=== PATIENT | female | born 1950 | race Caucasian/White ===

== ENCOUNTER → 2016-09-28 | Outpatient (CLI) | payer MEDICARE, OTHER ==
[2016-09-28 16:29] LABS: CHLORIDE,CL 107 mmol/L (98-110); SODIUM,NA 141 mmol/L (136-146)
== END | disposition home or self-care (01) ==
LOC: MW.LAB 15:37
PROVIDERS: ATTEND Internal Medicine Infectious Disease
DX: I10 Essential (primary) hypertension (principal)
CPT/HCPCS: 36415; 80053; 85025; 87522

== ENCOUNTER → 2016-10-15 | Outpatient (CLI) | payer MEDICARE, OTHER | LOC: MW.LAB 14:31 | PROVIDERS: ATTEND Internal Medicine Infectious Disease | DX: B18.2 Chronic viral hepatitis C (principal) | CPT/HCPCS: 36415; 87522 ==

== ENCOUNTER 2017-09-01 16:32 | Emergency (ER) | payer MEDICARE, OTHER ==
[2017-09-01] MEDS ORDERED: Alum Hydrox/Mag Hydrox/Simeth 15 ML, Lidocaine 2% 5 ML PO ONE ×2 (17:49)
[2017-09-01 18:42] LABS: CHLORIDE,CL 109 mmol/L (98-110); SODIUM,NA 142 mmol/L (136-146)
--- NOTE | 2017-09-01 19:26 | EDM.PDOC ---
ED HPI GENERAL MEDICAL PROBLEM - General Chief Complaint: Abdominal Pain Stated Complaint: STOMACH PAIN Time Seen by Provider: 09/01/17 17:10 Source of Information: Reports: Patient History Limitations: Reports: No Limitations - History of Present Illness INITIAL COMMENTS - FREE TEXT/NARRATIVE: HISTORY AND PHYSICAL: History of present illness: [Comes to the emergency room complaining of abdominal discomfort. Symptoms started yesterday evening and have continued into today. She reports a squeezing sensation through her mid abdomen that begins at her esophagus and moves down into her lower abdomen. She feels that this stimulates peristalsis. She describes the pain as waxing and waning and is not constant. Eating a meal worsened her symptoms last evening but she has not experienced this today. She took some Pepto-Bismol and has been taking ibuprofen which she thinks improved her symptoms. Has been pushing fluids. No fever chills. Denies nausea or vomiting. No constipation or diarrhea. No change in her bowels or bladder. No blood in her stools or black tarry stools. No change in urinary habits. Denies swelling or discoloration to extremities. She has no other complaints or concerns at this time. History of dry eyes, and migraine headaches.] Review of systems: As per history of present illness and below otherwise all systems reviewed and negative. Past medical history: As per history of present illness and as reviewed below otherwise noncontributory. Surgical history: As per history of present illness and as reviewed below otherwise noncontributory. Social history: No reported history of drug or alcohol abuse. Family history: As per history of present illness and as reviewed below otherwise noncontributory. Physical exam: HEENT: Atraumatic, normocephalic. Oral mucous membranes are pink and moist. No tonsillar swelling erythema or exudate. Throat is clear. Neck supple no lymphadenopathy or thyromegaly. Lungs: Clear to auscultation, breath sounds equal bilaterally. Heart: S1S2, regular rate and rhythm. Abdomen: Bowel sounds are normoactive throughout. Her abdomen is soft and nondistended. She is mildly tender throughout her entire abdomen with palpation. No guarding masses or rebound. No CVA tenderness. No organomegaly. Genitourinary: Deferred. Rectal: Deferred. Extremities: Atraumatic, ambulance without difficulty. Neurovascular unremarkable. Neuro: Awake, alert, oriented. Motor and sensory unremarkable throughout. Exam nonfocal. Diagnostics: [CBC, CMP, UA, amylase, lipase] Therapeutics: [GI cocktail] Impression: [abdominal pain] Plan: [GI Cocktail resolved patient's heartburn symptoms entirely. Patient appears relieved to have normal lab results and agrees to follow-up with a local PCP for further investigation of her abdominal pain. She is in agreement with today' s plan. We reviewed strict return precautions. She is in agreement with today's plan. All questions are answered concerns are addressed.] Definitive disposition and diagnosis as appropriate pending reevaluation and review of above. 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: Musculoskeletal History: Reports: Arthritis Neurological History: Reports: Migraines - Infectious Disease History Infectious Disease History: Reports: Chicken Pox, Hepatitis C, Measles, Mumps - Past Surgical History Female Surgical History: Reports: Section Musculoskeletal Surgical History: Reports: Arthroscopic Knee Social & Family History - Family History Family Medical History: Noncontributory Oncologic: Reports: Breast, Colon - Tobacco Use Smoking Status *Q: Never Smoker Second Hand Smoke Exposure: No - Caffeine Use Caffeine Use: Reports: Coffee, Tea - Recreational Drug Use Recreational Drug Use: No ED ROS GENERAL - Review of Systems Review Of Systems: ROS reveals no pertinent complaints other than HPI. ED EXAM, GI/ABD - Physical Exam Exam: See Below Course - Vital Signs Last Recorded V/S: Last Vital Signs Temp 98.2 F 09/01/17 17:19 Pulse 74 09/01/17 17:19 Resp 18 09/01/17 17:19 BP 129/86 09/01/17 17:19 Pulse Ox 96 09/01/17 17:19 - Orders/Labs/Meds Labs: Laboratory Tests 09/01/17 09/01/17 09/01/17 Range/Units 18:11 18:11 19:05 WBC 9.22 (4.0-11.0) K/uL RBC 4.69 (4.30-5.90) M/uL Hgb 14.9 (12.0-16.0) g/dL Hct 42.7 (36.0-46.0) % MCV 91.0 (80.0-98.0) fL MCH 31.8 (27.0-32.0) pg MCHC 34.9 (31.0-37.0) g/dL RDW Std Deviation 42.1 (28.0-62.0) fl RDW Coeff of Naima 13 (11.0-15.0) % Plt Count 216 (150-400) K/uL MPV 9.60 (7.40-12.00) fL Neut % (Auto) 70.9 (48.0-80.0) % Lymph % (Auto) 21.0 (16.0-40.0) % [place] % (Auto) 6.4 (0.0-15.0) % Eos % (Auto) 1.4 (0.0-7.0) % Baso % (Auto) 0.3 (0.0-1.5) % Neut # (Auto) 6.5 H (1.4-5.7) K/uL Lymph # (Auto) 1.9 (0.6-2.4) K/uL [place] # (Auto) 0.6 (0.0-0.8) K/uL Eos # (Auto) 0.1 (0.0-0.7) K/uL Baso # (Auto) 0.0 (0.0-0.1) K/uL Nucleated RBC % 0.0 /100WBC Nucleated RBCs # 0 K/uL Sodium 142 (136-146) mmol/L Potassium 4.3 (3.5-5.1) mmol/L Chloride 109 (98-110) mmol/L Carbon Dioxide 25 (21-31) mmol/L BUN 16 (6.0-23.0) mg/dL Creatinine 0.9 (0.6-1.5) mg/dL Est Cr Clr Drug Dosing 55.33 mL/min Estimated GFR (MDRD) > 60.0 ml/min Glucose 108 (60-110) mg/dL Calcium 9.8 (8.8-10.8) mg/dL Total Bilirubin 0.4 (0.1-1.5) mg/dL AST 19 (5-40) IU/L ALT 14 (8-54) IU/L Alkaline Phosphatase 59 (40-150) Total Protein 7.8 (6.0-8.0) g/dL Albumin 4.3 (3.4-4.8) g/dL Globulin 3.5 (2.0-3.5) g/dL Albumin/Globulin Ratio 1.2 L (1.3-2.8) Amylase 72 (10-90) U/L Lipase 27 (7-80) U/L Urine Color YELLOW Urine Appearance CLEAR Urine pH 6.0 (5.0-8.0) Ur Specific [place] 1.025 (1.001-1.035) Urine Protein NEGATIVE (NEGATIVE) mg/dL Urine Glucose (UA) NEGATIVE (NEGATIVE) mg/dL Urine Ketones NEGATIVE (NEGATIVE) mg/dL Urine Occult Blood NEGATIVE (NEGATIVE) Urine Nitrite NEGATIVE (NEGATIVE) Urine Bilirubin NEGATIVE (NEGATIVE) Urine Urobilinogen 0.2 (<2.0) EU/dL Ur Leukocyte Esterase NEGATIVE (NEGATIVE) Urine RBC 0-1 (0-2/HPF) Urine WBC 0-2 (0-5/HPF) Ur Epithelial Cells RARE (NONE-FEW) Amorphous Sediment LIGHT (NEGATIVE) Urine Bacteria RARE (NEGATIVE) Urine Mucus LIGHT (NONE-MOD) Meds: Medications Discontinued Medications Generic Name Dose Route Start Last Admin Trade Name Freq PRN Reason Stop Dose Admin Al Hydroxide/Mg Hydroxide 15 0 ml 09/01/17 17:49 09/01/17 18:09 ml/ Lidocaine HCl 5 ml PO 09/01/17 17:50 1 each ONETIME ONE Administration Departure - Departure Time of Disposition: 19:25 Disposition: Home, Self-Care 01 Condition: Good Clinical Impression: Abdominal pain - Discharge Information Instructions: Abdominal Pain, Adult Referrals: PCP,None [Primary Care Provider] - Forms: ED Department Discharge Additional Instructions: The following information is given to patients seen in the emergency department who are being discharged to home. This information is to outline your options for follow-up care. We provide all patients seen in our emergency department with a follow-up referral. The need for follow-up, as well as the timing and circumstances, are variable depending upon the specifics of your emergency department visit. If you don't have a primary care physician on staff, we will provide you with a referral. We always advise you to contact your personal physician following an emergency department visit to inform them of the circumstance of the visit and for follow-up with them and/or the need for any referrals to a consulting specialist. The emergency department will also refer you to a specialist when appropriate. This referral assures that you have the opportunity for follow-up care with a specialist. All of these measure are taken in an effort to provide you with optimal care, which includes your follow-up. Under all circumstances we always encourage you to contact your private physician who remains a resource for coordinating your care. When calling for follow-up care, please make the office aware that this follow-up is from your recent emergency room visit. If for any reason you are refused follow-up, please contact the [facility] emergency department at and asked to speak to the emergency department charge nurse. [facility] [address] [place] [id number] Call the above list clinic and schedule an appointment to discuss abdominal pain. Continue to monitor symptoms. You may try an [id number] medication for acid such as Pepcid or Zantac. Return to ER as needed as discussed.
== END 2017-09-01 19:56 | disposition home or self-care (01) ==
LOC: MW.ED 16:32
DX: R10.9 Unspecified abdominal pain (principal); Z79.899 Other long term (current) drug therapy; Z88.2 Allergy status to sulfonamides
CPT/HCPCS: 36415; 80053; 81001; 82150; 83690; 85025; 99284; A9270

== ENCOUNTER 2019-11-20 11:52 | Emergency (ER) | payer MEDICARE, OTHER ==
[2019-11-20] MEDS ORDERED: Metoprolol Tartrate 25 MG Tab PO ONE (12:11)
[2019-11-20 12:46] LABS: BLOOD UREA NITROGEN,BUN 21 mg/dL (7.0-18.0); CARBON DIOXIDE,CO2 26.8 mmol/L (21.0-32.0); CHLORIDE,CL 103 mmol/L (98-107); GLUCOSE RANDOM 95 mg/dL (74-106); POTASSIUM,K 4.1 mmol/L (3.5-5.1); SODIUM,NA 138 mmol/L (136-145)
[2019-11-20] MEDS ORDERED: Lidocaine 2% Viscous Solution 15 ML Cup PO ONE (12:54)
--- NOTE | 2019-11-20 13:13 | EDM.PDOC ---
ED HPI GENERAL MEDICAL PROBLEM - General Chief Complaint: ENT Problem Stated Complaint: BLOODY NOSE Time Seen by Provider: 11/20/19 12:00 Source of Information: Reports: Patient History Limitations: Reports: No Limitations - History of Present Illness INITIAL COMMENTS - FREE TEXT/NARRATIVE: 69-year-old female presents the emergency room with epistaxis out the right nostril. Patient states it happened a couple hours or she could not get to stop bleeding. Has a history of hep C which is been treated and hypertension also has migraines Onset: Today Duration: Hour(s):, Getting Worse Severity: Moderate Improves with: Reports: None Associated Symptoms: Reports: No Other Symptoms - Related Data Allergies Allergy/AdvReac Type Severity Reaction Status Date / Time Sulfa (Sulfonamide Allergy Swelling Verified 11/20/19 12:01 Antibiotics) Home Meds: Home Meds Eletriptan [Relpax] 40 mg PO DAILY 09/01/17 [History] Propranolol [InnoPran XL 24 Hr] 120 mg PO DAILY 09/01/17 [History] ondansetron HCL [Zofran] 4 mg PO Q4HR #12 tablet 07/03/18 [Rx] Past Medical History HEENT History: Reports: None Cardiovascular History: Reports: Arrhythmia Respiratory History: Reports: None Gastrointestinal History: Reports: Hepatitis Genitourinary History: Reports: None 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: Musculoskeletal History: Reports: Arthritis, Neck Pain, Chronic, Other (See Below) Other Musculoskeletal History: Lumbar DDD Neurological History: Reports: Migraines Psychiatric History: Reports: None Endocrine/Metabolic History: Reports: None Hematologic History: Reports: None Immunologic History: Reports: None Oncologic (Cancer) History: Reports: Basal Cell Carcinoma Dermatologic History: Reports: None - Infectious Disease History Infectious Disease History: Reports: Chicken Pox, Hepatitis C Other Infectious Disease History: Now negative hep c - Past Surgical History Head Surgeries/Procedures: Reports: None HEENT Surgical History: Reports: None Respiratory Surgical History: Reports: None Female Surgical History: Reports: Section Endocrine Surgical History: Reports: None Musculoskeletal Surgical History: Reports: Arthroscopic Knee Dermatological Surgical History: Reports: None Social & Family History - Family History Family Medical History: Noncontributory Oncologic: Reports: Breast, Colon - Tobacco Use Smoking Status *Q: Never Smoker - Caffeine Use Caffeine Use: Reports: Coffee - Recreational Drug Use Recreational Drug Use: No ED ROS ENT - Review of Systems Review Of Systems: See Below Constitutional: Reports: No Symptoms HEENT: Reports: Nosebleed Respiratory: Reports: No Symptoms Cardiovascular: Reports: No Symptoms Endocrine: Reports: No Symptoms GI/Abdominal: Reports: No Symptoms : Reports: No Symptoms Musculoskeletal: Reports: No Symptoms Skin: Reports: No Symptoms Neurological: Reports: Headache Psychiatric: Reports: No Symptoms Hematologic/Lymphatic: Reports: No Symptoms Immunologic: Reports: No Symptoms ED EXAM, ENT - Physical Exam Exam: See Below Exam Limited By: No Limitations General Appearance: Alert, WD/WN, No Apparent Distress Eye Exam: Bilateral Eye: Normal Fundi, Normal Inspection Ears: Normal External Exam, Normal Canal, Hearing Grossly Normal, Normal TMs Nose: Normal Inspection, Active Bleeding (Amount of active bleeding. To see bleeding point in Kessenback's plexus) Mouth/Throat: Normal Inspection, Normal Gums Head: Atraumatic, Normocephalic Neck: Normal Inspection Respiratory/Chest: No Respiratory Distress, Lungs Clear, No Accessory Muscle Use Psychiatric: Normal Affect, Normal Mood Skin: Warm, Dry Lymphatic: No Adenopathy Course - Vital Signs Text/Narrative:: Patient came in with epistaxis. Had normal electrolytes and CBC performed. Patient blood pressure initially elevated at 172/100. Given some Lopressor blood pressure ranging now from 110/50 to 140/80. Patient has no symptoms and. Patient given lidocaine intranasally and then Rhino Rocket was placed. Patient's nosebleed cleared up patient will be discharged home Last Recorded V/S: Last Vital Signs Temp 96.5 F L 11/20/19 11:58 Pulse 67 11/20/19 12:49 Resp 16 11/20/19 12:49 BP 101/61 11/20/19 12:49 Pulse Ox 95 11/20/19 12:49 - Orders/Labs/Meds Labs: Laboratory Tests 11/20/19 11/20/19 Range/Units 12:15 12:15 WBC 6.49 (4.0-11.0) K/uL RBC 4.46 (4.30-5.90) M/uL Hgb 13.8 (12.0-16.0) g/dL Hct 40.7 (36.0-46.0) % MCV 91.3 (80.0-98.0) fL MCH 30.9 (27.0-32.0) pg MCHC 33.9 (31.0-37.0) g/dL RDW Std Deviation 42.2 (28.0-62.0) fl RDW Coeff of Naima 13 (11.0-15.0) % Plt Count 227 (150-400) K/uL MPV 9.70 (7.40-12.00) fL Neut % (Auto) 56.9 (48.0-80.0) % Lymph % (Auto) 32.7 (16.0-40.0) % [place] % (Auto) 8.6 (0.0-15.0) % Eos % (Auto) 1.5 (0.0-7.0) % Baso % (Auto) 0.3 (0.0-1.5) % Neut # (Auto) 3.7 (1.4-5.7) K/uL Lymph # (Auto) 2.1 (0.6-2.4) K/uL [place] # (Auto) 0.6 (0.0-0.8) K/uL Eos # (Auto) 0.1 (0.0-0.7) K/uL Baso # (Auto) 0.0 (0.0-0.1) K/uL Nucleated RBC % 0.0 /100WBC Nucleated RBCs # 0 K/uL Sodium 138 (136-145) mmol/L Potassium 4.1 (3.5-5.1) mmol/L Chloride 103 (98-107) mmol/L Carbon Dioxide 26.8 (21.0-32.0) mmol/L BUN 21 H (7.0-18.0) mg/dL Creatinine 0.9 (0.6-1.0) mg/dL Est Cr Clr Drug Dosing 53.83 mL/min Estimated GFR (MDRD) > 60.0 ml/min Glucose 95 (74-106) mg/dL Calcium 9.4 (8.5-10.1) mg/dL Total Bilirubin 0.6 (0.2-1.0) mg/dL AST 22 (15-37) IU/L ALT 21 (14-63) IU/L Alkaline Phosphatase 65 (46-116) U/L Total Protein 7.8 (6.4-8.2) g/dL Albumin 4.1 (3.4-5.0) g/dL Globulin 3.7 (2.6-4.0) g/dL Albumin/Globulin Ratio 1.1 (0.9-1.6) Meds: Medications Discontinued Medications Generic Name Dose Route Start Last Admin Trade Name Emy PRN Reason Stop Dose Admin Lidocaine HCl 15 ml 11/20/19 12:54 11/20/19 13:02 Xylocaine 2% Viscous PO 11/20/19 12:55 15 ml ONETIME ONE Administration Metoprolol Tartrate 25 mg 11/20/19 12:11 11/20/19 12:23 Lopressor PO 11/20/19 12:12 25 mg ONETIME ONE Administration Departure - Departure Time of Disposition: 13:12 Disposition: Home, Self-Care 01 Condition: Good Clinical Impression: Epistaxis - Discharge Information Instructions: Nosebleed, [id number], Nosebleed, Adult Referrals: PCP,None [Primary Care Provider] - Additional Instructions: Follow-up in 48 hours to the emergency room. Return for any problems i.e. increasing bleeding severe pain fever headaches. Sepsis Event Note - Evaluation Sepsis Screening Result: No Definite Risk - Focused Exam Vital Signs: Vital Signs Temp Pulse Pulse Resp BP BP Pulse Ox 11/20/19 12:49 67 16 101/61 95 11/20/19 12:40 70 137/70 96 11/20/19 12:24 74 18 151/91 H 97 11/20/19 12:23 75 151/91 H 11/20/19 12:17 75 17 158/89 H 96 11/20/19 11:58 96.5 F L 73 16 172/97 H 96 Date Exam was Performed: 11/20/19 Time Exam was Performed: 13:08
== END 2019-11-20 13:20 | disposition home or self-care (01) ==
LOC: MW.ED 11:52
DX: R04.0 Epistaxis (principal); G43.909 Migraine, unspecified, not intractable, without status migrainosus; M19.90 Unspecified osteoarthritis, unspecified site; Z88.2 Allergy status to sulfonamides; Z79.899 Other long term (current) drug therapy
CPT/HCPCS: 30903; 36415; 80053; 85025; 99283; A9270; 30901; 99282

== ENCOUNTER 2020-05-31 00:58 | Emergency (ER) | payer MEDICARE, OTHER ==
[2020-05-31] MEDS ORDERED: Sodium Chloride 0.9% 2.5 ML Syringe FLUSH PRN (02:01)
[2020-05-31] MEDS ORDERED: Sodium Chloride 0.9% 10 ML Syringe FLUSH PRN (02:01)
[2020-05-31] MEDS ORDERED: Ketorolac 15 MG/ML SDV IVPUSH ONE (02:01)
--- NOTE | 2020-05-31 02:18 | EDM.PDOC ---
ED HPI GENERAL MEDICAL PROBLEM - General Chief Complaint: Cardiovascular Problem Stated Complaint: HBP Time Seen by Provider: 05/31/20 02:03 - History of Present Illness INITIAL COMMENTS - FREE TEXT/NARRATIVE: HISTORY AND PHYSICAL: History of present illness: This is a 70-year-old female who presents ER today secondary to elevated blood pressure and headache. Patient reports that she does have a history significant for migraines in the past however headaches that she has been experiencing over the last 2-month are atypical to her typical migraines. Patient reports that she only takes propranolol for her migraines. Patient reports that she has been checking her blood pressure over the last 2 months and it has been elevated and is been corresponding with her headaches. Patient reports that she has not seen her doctor for this as of yet but does have an appointment next to be evaluated for her elevated blood pressure. Patient reports that her blood pressure earlier runs in the 130/70 range however over the last 2-month her blood pressure has been fluctuating and this evening her blood pressure was 170/105 with a headache so came to the ER for further evaluation. Patient denies any recent fevers, shakes, chills, nausea, vomiting, diarrhea, dysuria, frequency, urgency. Patient denies any blurred or double vision. Patient denies any weakness to her upper or lower extremities. Patient has any chest pain or shortness of breath or lower extremity edema or orthopnea/PND/dyspnea on exertion. Patient denies any urinary symptoms. Patient denies any history of hypertension, diabetes, liver, lung, kidney problems. Patient is allergic to sulfa Patient denies any tobacco alcohol or drugs. Review of systems: As per history of present illness and below otherwise all systems reviewed and negative. Past medical history: As per history of present illness and as reviewed below otherwise noncontributory. Surgical history: As per history of present illness and as reviewed below otherwise nonco ntributory. Social history: No reported history of drug or alcohol abuse. Family history: As per history of present illness and as reviewed below otherwise noncontributory. Physical exam: HEENT: Atraumatic, normocephalic, pupils reactive, negative for conjunctival pallor or scleral icterus, mucous membranes moist, throat clear, neck supple, nontender, trachea midline. Lungs: Clear to auscultation, breath sounds equal bilaterally, chest nontender. Heart: S1S2, regular, negative for clicks, rubs, or JVD. Abdomen: Soft, nondistended, nontender. Negative for masses or hepatosplenomegaly. Negative for costovertebral tenderness. Pelvis: Stable nontender. Genitourinary: Deferred. Rectal: Deferred. Extremities: Atraumatic, negative for cords or calf pain. Neurovascular unremarkable. Neuro: Awake, alert, oriented. Cranial nerves II through XII unremarkable. Cerebellum unremarkable. Motor and sensory unremarkable throughout. Exam nonfocal. Diagnostics: CBC, CMP, EKG, CT of the head. Therapeutics: Toradol 15 mg IV Assessment and plan: This is a 70-year-old female who presents ER today with a headache and hypertension. Patient will have labs drawn for medical clearance. Patient's b lood pressure is elevated here in the ED but does not exhibit necessity for immediate or emergent treatment. Patient given Toradol to treat the headache to see if that might help her hypertension. Patient will have a CT scan of her head since her headache in the last month is different than her typical migraines. CT head reveals no acute pathology. No bleed masses or tumors. EKG: As interpreted by ER physician: Suzette: Nonspecific ST-T wave abnormalities Normal axis No evidence of ST elevation AR Normal sinus rhythm heart rate of 60 CBC within normal limits. CMP reveals normal renal function. Patient given Toradol 15 mg IV in the ED with near resolution of her headache. Patient's blood pressure is 180/81. Patient reports that she feels much better. I have discussed with the patient the need to keep her appointment on for further evaluation of her elevated blood pressure. At this time I do feel that it would be in the patient's best interest to start her alter her me dications in the ED and patient be best served with evaluation by her primary care physician prior to initiation of antihypertensive medications. Reassessment at the time of disposition demonstrates that the patient is in no acute distress. The patient has remained stable throughout the entire ED visit and is without objective evidence for acute process requiring urgent intervention or hospitalization. The patient is stable for discharge, counseling is provided as documented above, discussed symptomatic treatment and specific conditions for return. I have spoken with the patient/caregiver and discussed todays findings, in addition to providing specific details for the plan of care. Questions are answered and there is agreement with the plan. Headache Pain Score (Numeric/FACES): 8 - Related Data Allergies Allergy/AdvReac Type Severity Reaction Status Date / Time Sulfa (Sulfonamide Allergy Swelling Verified 05/31/20 01:21 Antibiotics) Home Meds: Home Meds Propranolol [InnoPran XL 24 Hr] 120 mg PO DAILY 09/01/17 [History] SUMAtriptan [Imitrex] 50 mg PO ASDIRECTED PRN 05/31/20 [History] Past Medical History HEENT History: Reports: None Cardiovascular History: Reports: Arrhythmia Respiratory History: Reports: None Gastrointestinal History: Reports: Hepatitis Genitourinary History: Reports: None FOCUSER History: Reports: Musculoskeletal History: Reports: Arthritis, Neck Pain, Chronic, Other (See Below) Other Musculoskeletal History: Lumbar DDD Neurological History: Reports: Migraines Psychiatric History: Reports: None Endocrine/Metabolic History: Reports: None Hematologic History: Reports: None Immunologic History: Reports: None Oncologic (Cancer) History: Reports: Basal Cell Carcinoma Dermatologic History: Reports: None - Infectious Disease History Infectious Disease History: Reports: Hepatitis C Other Infectious Disease History: Now negative hep c - Past Surgical History Head Surgeries/Procedures: Reports: None HEENT Surgical History: Reports: None Respiratory Surgical History: Reports: None Female Surgical History: Reports: Section Endocrine Surgical History: Reports: None Musculoskeletal Surgical History: Reports: Arthroscopic Knee Dermatological Surgical History: Reports: None Social & Family History - Family History Family Medical History: Noncontributory Oncologic: Reports: Breast, Colon - Tobacco Use Tobacco Use Status *Q: Never Tobacco User Second Hand Smoke Exposure: No - Caffeine Use Caffeine Use: Reports: Coffee - Recreational Drug Use Recreational Drug Use: No ED ROS GENERAL - Review of Systems Review Of Systems: See Below ED EXAM, GENERAL - Physical Exam Exam: See Below #1 Interpretation EKG Interpretation Comments: EKG: As interpreted by ER physician: Suzette: Nonspecific ST-T wave abnormalities Normal axis No evidence of ST elevation AR Normal sinus rhythm heart rate of 60 Course - Vital Signs Last Recorded V/S: Last Vital Signs Temp 98.7 F 05/31/20 01:10 Pulse 58 L 05/31/20 02:48 Resp 14 05/31/20 02:48 BP 173/75 H 05/31/20 02:48 Pulse Ox 98 05/31/20 02:48 - Orders/Labs/Meds Orders: Active Orders 24 hr Category Date Time Status EKG Documentation Completion [RC] AM Care 05/31/20 02:01 Active Sodium Chloride 0.9% [Saline Flush] Med 05/31/20 02:01 Active 10 ml FLUSH ASDIRECTED PRN Sodium Chloride 0.9% [Saline Flush] Med 05/31/20 02:01 Active 2.5 ml FLUSH ASDIRECTED PRN Saline Lock Insert [OM.PC] Stat Oth 05/31/20 02:01 Ordered Medication Orders Sodium Chloride (Saline Flush) 10 ml FLUSH ASDIRECTED PRN PRN Reason: Keep Vein Open Sodium Chloride (Saline Flush) 2.5 ml FLUSH ASDIRECTED PRN PRN Reason: Keep Vein Open Labs: Laboratory Tests 05/31/20 05/31/20 Range/Units 02:15 02:15 WBC 6.71 (4.0-11.0) K/uL RBC 4.50 (4.30-5.90) M/uL Hgb 14.1 (12.0-16.0) g/dL Hct 40.9 (36.0-46.0) % MCV 90.9 (80.0-98.0) fL MCH 31.3 (27.0-32.0) pg MCHC 34.5 (31.0-37.0) g/dL RDW Std Deviation 42.6 (28.0-62.0) fl RDW Coeff of Naima 13 (11.0-15.0) % Plt Count 202 (150-400) K/uL MPV 10.20 (7.40-12.00) fL Neut % (Auto) 56.1 (48.0-80.0) % Lymph % (Auto) 30.7 (16.0-40.0) % [place] % (Auto) 11.0 (0.0-15.0) % Eos % (Auto) 1.9 (0.0-7.0) % Baso % (Auto) 0.3 (0.0-1.5) % Neut # (Auto) 3.8 (1.4-5.7) K/uL Lymph # (Auto) 2.1 (0.6-2.4) K/uL [place] # (Auto) 0.7 (0.0-0.8) K/uL Eos # (Auto) 0.1 (0.0-0.7) K/uL Baso # (Auto) 0.0 (0.0-0.1) K/uL Nucleated RBC % 0.0 /100WBC Nucleated RBCs # 0 K/uL Sodium 142 (136-145) mmol/L Potassium 3.5 (3.5-5.1) mmol/L Chloride 106 (98-107) mmol/L Carbon Dioxide 27.6 (21.0-32.0) mmol/L BUN 13 (7.0-18.0) mg/dL Creatinine 0.9 (0.6-1.0) mg/dL Est Cr Clr Drug Dosing 53.09 mL/min Estimated GFR (MDRD) > 60.0 ml/min Glucose 97 (74-106) mg/dL Calcium 9.4 (8.5-10.1) mg/dL Total Bilirubin 0.4 (0.2-1.0) mg/dL AST 22 (15-37) IU/L ALT 22 (14-63) IU/L Alkaline Phosphatase 64 (46-116) U/L Troponin I < 0.050 (0.000-0.056) ng/mL Total Protein 7.7 (6.4-8.2) g/dL Albumin 4.1 (3.4-5.0) g/dL Globulin 3.6 (2.6-4.0) g/dL Albumin/Globulin Ratio 1.1 (0.9-1.6) Meds: Medications Generic Name Dose Route Start Last Admin Trade Name Freq PRN Reason Stop Dose Admin Sodium Chloride 10 ml 05/31/20 02:01 Saline Flush FLUSH ASDIRECTED PRN Keep Vein Open Sodium Chloride 2.5 ml 05/31/20 02:01 Saline Flush FLUSH ASDIRECTED PRN Keep Vein Open Discontinued Medications Generic Name Dose Route Start Last Admin Trade Name Freq PRN Reason Stop Dose Admin Ketorolac Tromethamine 15 mg 05/31/20 02:01 05/31/20 02:23 Toradol IVPUSH 05/31/20 02:02 15 mg ONETIME ONE Administration Departure - Departure Time of Disposition: 03:09 Disposition: Home, Self-Care 01 Condition: Good Clinical Impression: Hypertension Headache Qualifiers: Headache type: unspecified Headache chronicity pattern: episodic headache Intractability: intractable Qualified Code(s): R51 - Headache Instructions: Preventing Hypertension, Hypertension, Adult, [id number], General Headache Without Cause Referrals: Della Espinoza NP [Primary Care Provider] - Forms: ED Department Discharge Additional Instructions: You were seen and evaluated in the ER today secondary to your headaches and you elevated blood pressure. All your labs were within normal limits. You had a CT scan of your head which did not reveal any pathology. Your blood pressure has improved while you are in ED. Please keep your appointment on with your doctor for further evaluation of your elevated blood pressure. The following information is given to patients seen in the emergency department who are being discharged to home. This information is to outline your options fo r follow-up care. We provide all patients seen in our emergency department with a follow-up referral. The need for follow-up, as well as the timing and circumstances, are variable depending upon the specifics of your emergency department visit. If you don't have a primary care physician on staff, we will provide you with a referral. We always advise you to contact your personal physician following an emergency department visit to inform them of the circumstance of the visit and for follow-up with them and/or the need for any referrals to a consulting specialist. The emergency department will also refer you to a specialist when appropriate. This referral assures that you have the opportunity for follow-up care with a specialist. All of these measure are taken in an effort to provide you with optimal care, which includes your follow-up. Under all circumstances we always encourage you to contact your private physician who remains a resource for coordinating your care. When calling for follow-up care, please make the office aware that this follow-up is from your recent emergency room visit. If for any reason you are refused follow-up, please contact the [facility] at and asked to speak to the emergency department charge nurse. [facility] - [facility] [address] [place] [id number] [facility] [address] [place] [id number] Sepsis Event Note (ED) - Evaluation Sepsis Screening Result: No Definite Risk - Focused Exam Vital Signs: Vital Signs Temp Pulse Resp BP Pulse Ox 05/31/20 02:48 58 L 14 173/75 H 98 05/31/20 01:10 98.7 F 68 16 184/95 H 99 - My Orders Last 24 Hours: My Active Orders 05/31/20 02:01 EKG Documentation Completion [RC] AM Sodium Chloride 0.9% [Saline Flush] 10 ml FLUSH ASDIRECTED PRN Sodium Chloride 0.9% [Saline Flush] 2.5 ml FLUSH ASDIRECTED PRN Saline Lock Insert [OM.PC] Stat - Assessment/Plan Last 24 Hours: My Active Orders 05/31/20 02:01 EKG Documentation Completion [RC] AM Sodium Chloride 0.9% [Saline Flush] 10 ml FLUSH ASDIRECTED PRN Sodium Chloride 0.9% [Saline Flush] 2.5 ml FLUSH ASDIRECTED PRN Saline Lock Insert [OM.PC] Stat
--- NOTE | 2020-05-31 02:42 | CT ---
INDICATION: Headache TECHNIQUE: CT head without contrast. COMPARISON: Head CT 07/03/2018 FINDINGS: CSF spaces: Within normal limits for age. Brain parenchyma: The barnes-white differentiation is normal. No sign of mass, hemorrhage, or midline shift. Skull base and calvarium: The visualized paranasal sinuses and mastoid air cells demonstrate no acute or significant findings. The visualized orbits are grossly unremarkable. No skull fractures. Bilateral temporomandibular joint osteoarthritis. IMPRESSION: Bilateral temporomandibular joint osteoarthritis, otherwise unremarkable noncontrast head CT. Please note that all CT scans at this facility use dose modulation, iterative reconstruction, and/or weight-based dosing when appropriate to reduce radiation dose to as low as reasonably achievable. Dictated by Valente Oquendo MD @ May 31 2020 2:38AM Signed by Dr. Valente Oquendo @ May 31 2020 2:40AM
[2020-05-31 02:53] LABS: BLOOD UREA NITROGEN,BUN 13 mg/dL (7.0-18.0); CARBON DIOXIDE,CO2 27.6 mmol/L (21.0-32.0); CHLORIDE,CL 106 mmol/L (98-107); GLUCOSE RANDOM 97 mg/dL (74-106); POTASSIUM,K 3.5 mmol/L (3.5-5.1); SODIUM,NA 142 mmol/L (136-145)
== END 2020-05-31 03:28 | disposition home or self-care (01) ==
LOC: MW.ED 00:58
DX: I10 Essential (primary) hypertension (principal); Z88.2 Allergy status to sulfonamides
CPT/HCPCS: 36415; 70450; 80053; 84484; 85025; 93005; 96374; 99284; J1885; 93010; 99283

== ENCOUNTER 2022-12-19 11:15 | Emergency (ER) | payer MEDICARE | END 2022-12-19 13:20 | disposition home or self-care (01) | LOC: MW.ED 11:15 | DX: T18.198A Other foreign object in esophagus causing other injury, initial encounter (principal); Z88.2 Allergy status to sulfonamides | CPT/HCPCS: 70360; 70360-26; 71045; 71045-26; 99283 ==